=== PATIENT | female | born 1960 | race Caucasian/White ===

== ENCOUNTER → 2017-09-15 | Outpatient (CLI) | payer OTHER ==
[2017-09-15 10:40] LABS: EOS # 0.2 (0.04-0.40); EOS % 1.6 % (1.0-5.0); HEMATOCRIT 44.6 % (37.0-47.0); HEMOGLOBIN 14.7 g/dL (12.5-16.0); LYMPH# 2.2 (1.50-4.00); MEAN CELL VOLUME 83 fl (78-100); MEAN CORPUSCULAR HEMOGLOBIN 28 pg (27-31); MEAN CORPUSCULAR HGB CONC 33 g/dL (33-37); MEAN PLATELET VOLUME 8.8 fl (7.4-10.4); MONO # 1.1 (0.20-0.80); PLATELET COUNT 308 K/mm3 (130-400); RED BLOOD COUNT 5.35 M/mm3 (4.10-5.30); WHITE BLOOD COUNT 12.7 K/mm3 (4.8-10.8)
[2017-09-15 10:46] LABS: ALBUMIN 4.4 g/dL (3.5-5.0); BUN/CREATININE RATIO 17.5 (6.0-26.0); CALCIUM 9.2 mg/dL (8.4-10.2); POTASSIUM 4.1 mmol/L (3.6-5.0); TOTAL BILIRUBIN 0.9 mg/dL (0.2-1.3); TOTAL PROTEIN 7.9 g/dL (6.3-8.2)
[2017-09-15 10:48] LABS: NEU # 9.1 (1.40-6.50)
== END ==
LOC: LAB 10:23
PROVIDERS: Physician Assistant
DX: L08.9 Local infection of the skin and subcutaneous tissue, unspecified (principal); T14.8XXA Other injury of unspecified body region, initial encounter; W55.01XA Bitten by cat, initial encounter

== ENCOUNTER → 2018-05-16 | Outpatient (CLI) | payer OTHER ==
[2018-05-16 17:12] LABS: EOS # 0.4 (0.04-0.40); HEMOGLOBIN 15.2 g/dL (12.5-16.0); LYMPH# 2.3 (1.50-4.00); MEAN CELL VOLUME 82 fl (78-100); MEAN CORPUSCULAR HEMOGLOBIN 28 pg (27-31); MEAN CORPUSCULAR HGB CONC 34 g/dL (33-37); MEAN PLATELET VOLUME 8.8 fl (7.4-10.4); MONO # 0.8 (0.20-0.80); NEU # 4.8 (1.40-6.50); PLATELET COUNT 315 K/mm3 (130-400); RED BLOOD COUNT 5.46 M/mm3 (4.10-5.30); RED CELL DISTRIBUTION WIDTH 13.6 % (11.5-14.5); WHITE BLOOD COUNT 8.4 K/mm3 (4.8-10.8)
[2018-05-16 17:27] LABS: ALBUMIN 4.5 g/dL (3.5-5.0); CALCIUM 8.9 mg/dL (8.4-10.2); POTASSIUM 3.9 mmol/L (3.6-5.0); TOTAL BILIRUBIN 0.4 mg/dL (0.2-1.3); TOTAL PROTEIN 7.5 g/dL (6.3-8.2)
== END ==
LOC: LAB 16:56
PROVIDERS: Family Medicine
DX: Z01.419 Encounter for gynecological examination (general) (routine) without abnormal findings (principal); E07.9 Disorder of thyroid, unspecified; E55.9 Vitamin D deficiency, unspecified

== ENCOUNTER → 2019-03-29 | Outpatient (CLI) | payer OTHER ==
[2019-03-29 10:06] LABS: EOS # 0.2 (0.04-0.40); EOS % 2.5 % (1.0-5.0); HEMATOCRIT 40.5 % (37.0-47.0); HEMOGLOBIN 12.7 g/dL (12.5-16.0); MEAN CELL VOLUME 77 fl (78-100); MEAN CORPUSCULAR HGB CONC 31 g/dL (33-37); MEAN PLATELET VOLUME 8.6 fl (7.4-10.4); MONO # 0.6 (0.20-0.80); NEU # 5.2 (1.40-6.50); PLATELET COUNT 488 K/mm3 (130-400); RED BLOOD COUNT 5.24 M/mm3 (4.10-5.30); RED CELL DISTRIBUTION WIDTH 14.4 % (11.5-14.5)
[2019-03-29 10:15] LABS: ALBUMIN 4.3 g/dL (3.5-5.0)
[2019-03-29 10:16] LABS: POTASSIUM 4.5 mmol/L (3.5-5.1)
[2019-03-29 10:17] LABS: CALCIUM 9.6 mg/dL (8.3-10.5)
[2019-03-29 10:18] LABS: TOTAL PROTEIN 7.5 g/dL (6.4-8.3)
[2019-03-29 10:20] LABS: TOTAL BILIRUBIN 0.4 mg/dL (0.2-1.2)
[2019-03-29 11:11] LABS: ERYTHROCYTE SEDIMENTATION RATE 12 mm/hr (0-30); MEAN CORPUSCULAR HEMOGLOBIN 24 pg (27-31)
== END ==
LOC: LAB 09:55
PROVIDERS: Physician Assistant
DX: L03.90 Cellulitis, unspecified (principal); M25.50 Pain in unspecified joint; R60.0 Localized edema

== ENCOUNTER → 2019-10-11 | Outpatient (CLI) | payer OTHER | LOC: LAB 16:04 | DX: Z79.899 Other long term (current) drug therapy (principal) ==

== ENCOUNTER → 2021-06-11 | Outpatient (CLI) | payer OTHER ==
[2021-06-11 08:46] LABS: ALBUMIN 4.2 g/dL (3.5-5.0)
[2021-06-11 08:51] LABS: TOTAL BILIRUBIN 0.4 mg/dL (0.2-1.2)
[2021-06-11 08:53] LABS: BASO # 0.07 (0.02-0.10); EOS # 0.36 (0.04-0.40); EOS % 6.1 % (1.0-5.0); HEMATOCRIT 35.5 % (37.0-47.0); HEMOGLOBIN 10.6 g/dL (12.5-16.0); LYMPH# 1.96 (1.50-4.00); MEAN CELL VOLUME 70 fl (78-100); MEAN CORPUSCULAR HEMOGLOBIN 21 pg (27-31); MEAN CORPUSCULAR HGB CONC 30 g/dL (33-37); MEAN PLATELET VOLUME 8.6 fl (7.4-10.4); MONO # 0.53 (0.20-0.80); NEU # 2.96 (1.40-6.50); PLATELET COUNT 393 K/mm3 (130-400); RED BLOOD COUNT 5.11 M/mm3 (4.10-5.30); RED CELL DISTRIBUTION WIDTH 16.3 % (11.5-14.5); WHITE BLOOD COUNT 5.9 K/mm3 (4.8-10.8)
[2021-06-11 08:54] LABS: DIRECT BILIRUBIN 0.2 mg/dL (0.0-0.5)
[2021-06-11 10:09] LABS: ERYTHROCYTE SEDIMENTATION RATE 4 mm/hr (0-30)
[2021-06-12 01:02] LABS: COMPLEMENT C3 142 mg/dL (83-193); COMPLEMENT-C4 50 mg/dL (15-57)
== END ==
LOC: LAB 08:12
DX: Z79.01 Long term (current) use of anticoagulants (principal); Z79.899 Other long term (current) drug therapy